=== PATIENT | female | born 1980 | race Caucasian/White ===

== ENCOUNTER 2017-04-14 16:15 | Inpatient (IN) | payer OTHER ==
[~2017-04-14] VITALS: Ht 154.9 cm; Wt 77.2 kg
[2017-04-14 16:37] LABS: GLUCOSE,POINT OF CARE 222 MG/DL (70-110)
[2017-04-14] MEDS ORDERED: FERR-89 PO (16:44)
[2017-04-14] MEDS ORDERED: PRAV20TA4 PO (16:44)
[2017-04-14] MEDS ORDERED: LISI-662 PO (16:44)
[2017-04-14] MEDS ORDERED: CIPR-278 PO (16:44)
[2017-04-14] MEDS ORDERED: FAMO20 PO (16:44)
[2017-04-14] MEDS ORDERED: INSU100V SQ (16:45)
[2017-04-14] MEDS ORDERED: INSLAN SQ (16:45)
[2017-04-14] MEDS ORDERED: SODIUM CHLORIDE 0.9% 1,000 ML IV ONE ×2 (17:00→19:30)
[2017-04-14 18:07] LABS: BASOPHILS # (AUTO) 0.04 K/uL (0.00-0.20); BASOPHILS % (AUTO) 0.3 % (0.0-2.0); EOSINOPHILS # (AUTO) 0.21 K/uL (0.00-0.70); EOSINOPHILS % (AUTO) 1.55 % (1.0-6.0); HEMATOCRIT 37.4 % (36-46); HEMOGLOBIN 12.6 g/dL (12.0-16.0); LYMPHOCYTES # (AUTO) 2.4 K/uL (1.0-4.8); LYMPHOCYTES % (AUTO) 17.8 % (22.0-44.0); MEAN CORPUSCULAR HGB CONC 33.6 G/dL (31.0-37.0); MEAN CORPUSCULAR VOLUME 86 fL (80-100); MONOCYTES # (AUTO) 0.8 K/uL (0.1-1.0); MONOCYTES % (AUTO) 5.5 % (2.0-9.0); NEUTROPHILS # (AUTO) 10.2 K/uL (1.8-7.7); NEUTROPHILS % (AUTO) 74.9 % (40.0-70.0); PLATELET COUNT (AUTO) 532 K/uL (150-450); RED BLOOD CELL COUNT(AUTO) 4.34 MIL/uL (4.00-5.20); WHITE BLOOD COUNT (AUTO) 13.6 K/uL (4.5-11.0)
[2017-04-14] MEDS ORDERED: SODIUM CHLORIDE 0.9% 2,000 ML IV ONE (18:15)
[2017-04-14 18:16] LABS: CALCIUM, TOTAL 9.7 mg/dL (8.8-10.5); CREATININE 1.52 mg/dL (0.60-1.30); POTASSIUM 4.3 mmol/L (3.5-5.1)
[2017-04-14 18:22] LABS: ALBUMIN 3.7 g/dL (3.4-5.0); BILIRUBIN,TOTAL 0.3 mg/dL (0.1-1.0); TOTAL PROTEIN, SERUM 8.3 g/dL (6.4-8.2)
[2017-04-14 18:41] LABS: APPEARANCE,URINE CLOUDY (CLEAR); GLUCOSE, URINE (UA) 250 mg/dL (NEGATIVE); KETONES,URINE NEGATIVE (NEGATIVE); LEUKOCYTE ESTERASE ,URINE SMALL (NEGATIVE); OCCULT BLOOD,URINE NEGATIVE (NEGATIVE); PH,URINE 6.5 (5.0-8.0); PROTEIN,URINE TRACE (NEGATIVE)
[2017-04-14] MEDS ORDERED: ONDANSETRON HCL 4 MG/2 ML VIAL IVP ONE ×2 (18:45→20:15)
[2017-04-14] MEDS ORDERED: MORPHINE SULFATE 4 MG/ML SYRINGE IVP ONE (18:45)
[2017-04-14] MEDS ORDERED: CefTRIAXone 1 GM/DEXTROSE 50 ML IV ONE (18:45)
[2017-04-14 18:46] LABS: RBC,URINE 0-2 /HPF (0-2); SQUAMOUS EPITHELIAL CELL,UR Many /LPF (None Seen)
[2017-04-14] MEDS ORDERED: LEVOFLOXACIN 500 MG TABLET PO ONE (19:30)
[2017-04-14] MEDS ORDERED: BARIUM SULFATE 0.1% SUSPENSION 450 ML BOTTLE PO ONE (20:15)
[2017-04-14] MEDS ORDERED: HYDROmorphone 2 MG/ML SYRINGE IVP ONE (20:15)
[2017-04-14 20:18] LABS: LACTIC ACID 1.4 mmol/L (0.4-2.0)
[2017-04-14 20:36] LABS: CREATINE KINASE MB 0.5 ng/mL (0-5); CREATINE KINASE, TOTAL 104 U/L (26-192)
[2017-04-14] MEDS: DOCUSATE SODIUM 100 MG CAPSULE PO SCH (21:00)
[2017-04-14] MEDS ORDERED: MAGNESIUM HYDROXIDE SUSPENSION 30 ML UDCUP PO PRN (21:00)
[2017-04-14] MEDS ORDERED: DEXTROSE 50%-WATER 25 GM/50 ML SYRINGE IVP PRN (21:15)
[2017-04-14] MEDS ORDERED: IOVERSOL 320 MG/ML 100 ML VIAL ONE (22:09)
[2017-04-14] MEDS ORDERED: SODIUM CHLORIDE 0.9% 100 ML ONE (22:09)
[2017-04-15] VITALS (7 sets, daily range): BP systolic 99–155; BP diastolic 68–99
[2017-04-15] MEDS: SODIUM CHLORIDE 0.9% 1,000 ML IV SCH ×3 (01:25→16:01)
[2017-04-15] MEDS: HYDROmorphone 2 MG/ML SYRINGE IVP PRN ×6 (01:32→23:32)
[2017-04-15] MEDS: INSULIN ASPART 100 UNITS/ML SQ PRN ×4 (06:26→23:32)
[2017-04-15 06:58] LABS: ANION GAP 10 mmol/L (8-16); CALCIUM, TOTAL 8.1 mg/dL (8.8-10.5); CARBON DIOXIDE 19 mmol/L (22-29); CHLORIDE 102 mmol/L (98-107); CREATININE 0.92 mg/dL (0.60-1.30); GLOMERULAR FILTR. RATE CALC > 60 mL/min (>60); POTASSIUM 4.4 mmol/L (3.5-5.1); SODIUM SERUM 131 mmol/L (136-145); UREA NITROGEN, BLOOD 16 mg/dL (7-18)
[2017-04-15 07:55] LABS: BASOPHILS # (AUTO) 0.04 K/uL (0.00-0.20); BASOPHILS % (AUTO) 0.5 % (0.0-2.0); EOSINOPHILS # (AUTO) 0.08 K/uL (0.00-0.70); EOSINOPHILS % (AUTO) 1.01 % (1.0-6.0); HEMATOCRIT 32.2 % (36-46); HEMOGLOBIN 10.8 g/dL (12.0-16.0); LYMPHOCYTES # (AUTO) 1.6 K/uL (1.0-4.8); LYMPHOCYTES % (AUTO) 20.5 % (22.0-44.0); MEAN CORPUSCULAR HGB CONC 33.4 G/dL (31.0-37.0); MEAN CORPUSCULAR VOLUME 87 fL (80-100); MONOCYTES # (AUTO) 0.6 K/uL (0.1-1.0); MONOCYTES % (AUTO) 7.2 % (2.0-9.0); NEUTROPHILS # (AUTO) 5.7 K/uL (1.8-7.7); NEUTROPHILS % (AUTO) 70.8 % (40.0-70.0); PLATELET COUNT (AUTO) 359 K/uL (150-450); RED BLOOD CELL COUNT(AUTO) 3.71 MIL/uL (4.00-5.20); RED CELL DISTRIBUTION WIDTH 13.1 % (11.5-14.5)
[2017-04-15 08:02] LABS: GLUCOSE COMMENT 1 Received Meds; GLUCOSE,POINT OF CARE 173 MG/DL (70-110)
[2017-04-15] MEDS: ONDANSETRON HCL 4 MG/2 ML VIAL IVP PRN ×2 (08:26→19:38)
[2017-04-15] MEDS: DOCUSATE SODIUM 100 MG CAPSULE PO SCH ×2 (08:28→19:39)
[2017-04-15] MEDS ORDERED: PANTOPRAZOLE SODIUM 40 MG/VIAL IVP SCH (09:00)
[2017-04-15 12:17] LABS: GLUCOSE COMMENT 1 Received Meds; GLUCOSE,POINT OF CARE 249 MG/DL (70-110)
[2017-04-15] MEDS: CefTRIAXone 1 GM/DEXTROSE 50 ML IV SCH (16:59)
[2017-04-15 17:22] LABS: GLUCOSE COMMENT 1 Received Meds; GLUCOSE,POINT OF CARE 201 MG/DL (70-110)
[2017-04-15] MEDS: PANTOPRAZOLE SODIUM 40 MG/VIAL IVP SCH (19:39)
[2017-04-16 00:07] LABS: GLUCOSE,POINT OF CARE 198 MG/DL (70-110)
[2017-04-16] MEDS: SODIUM CHLORIDE 0.9% 1,000 ML IV SCH ×2 (03:53→15:16)
[2017-04-16] MEDS: ONDANSETRON HCL 4 MG/2 ML VIAL IVP PRN ×3 (03:53→18:59)
[2017-04-16] MEDS: HYDROmorphone 2 MG/ML SYRINGE IVP PRN ×4 (03:53→18:31)
[2017-04-16 04:00] VITALS: BP 124/75
[2017-04-16] MEDS: INSULIN ASPART 100 UNITS/ML SQ PRN ×3 (05:32→18:30)
[2017-04-16 06:02] LABS: GLUCOSE,POINT OF CARE 206 MG/DL (70-110)
[2017-04-16 07:22] VITALS: BP 99/64
[2017-04-16] MEDS: DOCUSATE SODIUM 100 MG CAPSULE PO SCH ×2 (08:29→20:44)
[2017-04-16 11:21] VITALS: BP 122/70
[2017-04-16 12:42] LABS: GLUCOSE COMMENT 1 Received Meds; GLUCOSE,POINT OF CARE 256 MG/DL (70-110)
[2017-04-16] MEDS ORDERED: FLUCONAZOLE 150 MG TABLET PO ONE (15:00)
[2017-04-16] MEDS: MetroNIDAZOLE 500 MG/NACL 100 ML IV SCH ×2 (15:16→23:26)
[2017-04-16 15:59] VITALS: BP 125/81
[2017-04-16] MEDS: CIPROFLOXACIN 400 MG/D5% WATER 200 ML IV SCH (17:05)
[2017-04-16 18:02] LABS: GLUCOSE COMMENT 1 Received Meds; GLUCOSE,POINT OF CARE 227 MG/DL (70-110)
[2017-04-16] MEDS: CefTRIAXone 1 GM/DEXTROSE 50 ML IV SCH (18:31)
[2017-04-16] MEDS: METOCLOPRAMIDE HCL 5 MG/ML 2 ML VIAL IVP SCH ×2 (18:32→23:26)
[2017-04-16 19:33] VITALS: BP 125/82
[2017-04-16] MEDS: PANTOPRAZOLE SODIUM 40 MG/VIAL IVP SCH (20:44)
[2017-04-16 21:21] LABS: GLUCOSE,POINT OF CARE 243 MG/DL (70-110)
[2017-04-16 23:27] VITALS: BP 141/75
[2017-04-17] MEDS: CIPROFLOXACIN 400 MG/D5% WATER 200 ML IV SCH ×2 (03:04→15:00)
[2017-04-17] MEDS: SODIUM CHLORIDE 0.9% 1,000 ML IV SCH ×2 (03:05→18:14)
[2017-04-17 04:21] VITALS: BP 140/92
[2017-04-17] MEDS: METOCLOPRAMIDE HCL 5 MG/ML 2 ML VIAL IVP SCH ×4 (05:41→23:27)
[2017-04-17] MEDS: MetroNIDAZOLE 500 MG/NACL 100 ML IV SCH ×2 (05:41→14:42)
[2017-04-17 05:58] LABS: GLUCOSE,POINT OF CARE 280 MG/DL (70-110)
[2017-04-17 07:35] VITALS: BP 147/94
[2017-04-17] MEDS: HYDROmorphone 2 MG/ML SYRINGE IVP PRN (11:55)
[2017-04-17] MEDS: INSULIN ASPART 100 UNITS/ML SQ PRN ×3 (11:56→20:22)
[2017-04-17] MEDS: DOCUSATE SODIUM 100 MG CAPSULE PO SCH ×2 (11:57→20:16)
[2017-04-17 12:42] LABS: GLUCOSE,POINT OF CARE 259 MG/DL (70-110)
[2017-04-17] MEDS: ACETAMINOPHEN 325 MG TABLET PO PRN ×2 (12:43→20:16)
[2017-04-17 13:05] VITALS: BP 138/93
[2017-04-17 15:40] VITALS: BP 112/81
[2017-04-17 18:28] LABS: GLUCOSE COMMENT 1 Received Meds; GLUCOSE,POINT OF CARE 250 MG/DL (70-110)
[2017-04-17 20:04] VITALS: BP 156/99
[2017-04-17] MEDS: PANTOPRAZOLE SODIUM 40 MG/VIAL IVP SCH (20:16)
[2017-04-17 20:47] LABS: GLUCOSE COMMENT 1 Received Meds; GLUCOSE,POINT OF CARE 290 MG/DL (70-110)
[2017-04-17 23:30] VITALS: BP 144/82
[2017-04-18] MEDS: SODIUM CHLORIDE 0.9% 1,000 ML IV SCH ×2 (03:43→13:58)
[2017-04-18 04:00] VITALS: BP 136/92
[2017-04-18] MEDS: METOCLOPRAMIDE HCL 5 MG/ML 2 ML VIAL IVP SCH ×2 (05:52→12:12)
[2017-04-18] MEDS: INSULIN ASPART 100 UNITS/ML SQ PRN ×2 (06:14→11:56)
[2017-04-18 06:33] LABS: GLUCOSE COMMENT 1 Received Meds; GLUCOSE,POINT OF CARE 315 MG/DL (70-110)
[2017-04-18 07:52] VITALS: BP 130/88
[2017-04-18] MEDS: DOCUSATE SODIUM 100 MG CAPSULE PO SCH (08:51)
[2017-04-18 11:01] VITALS: BP 136/93
[2017-04-18 15:27] LABS: BASOPHILS # (AUTO) 0.07 K/uL (0.00-0.20); BASOPHILS % (AUTO) 0.8 % (0.0-2.0); EOSINOPHILS # (AUTO) 0.17 K/uL (0.00-0.70); EOSINOPHILS % (AUTO) 1.94 % (1.0-6.0); HEMATOCRIT 34.9 % (36-46); HEMOGLOBIN 11.8 g/dL (12.0-16.0); LYMPHOCYTES # (AUTO) 2.3 K/uL (1.0-4.8); LYMPHOCYTES % (AUTO) 25.9 % (22.0-44.0); MEAN CORPUSCULAR HEMOGLOBIN 29.6 pg (26.0-34.0); MEAN CORPUSCULAR HGB CONC 33.9 G/dL (31.0-37.0); MEAN CORPUSCULAR VOLUME 87 fL (80-100); MONOCYTES # (AUTO) 0.4 K/uL (0.1-1.0); MONOCYTES % (AUTO) 4.5 % (2.0-9.0); NEUTROPHILS # (AUTO) 5.8 K/uL (1.8-7.7); NEUTROPHILS % (AUTO) 66.9 % (40.0-70.0); PLATELET COUNT (AUTO) 372 K/uL (150-450); RED BLOOD CELL COUNT(AUTO) 3.99 MIL/uL (4.00-5.20); RED CELL DISTRIBUTION WIDTH 13.2 % (11.5-14.5); WHITE BLOOD COUNT (AUTO) 8.7 K/uL (4.5-11.0)
[2017-04-18 15:48] LABS: ANION GAP 12 mmol/L (8-16); CALCIUM, TOTAL 9.5 mg/dL (8.8-10.5); CARBON DIOXIDE 23 mmol/L (22-29); CHLORIDE 103 mmol/L (98-107); CREATININE 0.86 mg/dL (0.60-1.30); GLOMERULAR FILTR. RATE CALC > 60 mL/min (>60); SODIUM SERUM 138 mmol/L (136-145); UREA NITROGEN, BLOOD 8 mg/dL (7-18)
[2017-04-18 16:08] LABS: ALANINE AMINOTRANSFERASE 157 U/L (12-78); ALBUMIN 3.6 g/dL (3.4-5.0); ASPARTATE AMINOTRANSFERASE 27 U/L (15-37); BILIRUBIN,TOTAL 0.3 mg/dL (0.1-1.0); TOTAL PROTEIN, SERUM 7.8 g/dL (6.4-8.2)
[2017-04-18 16:10] VITALS: BP 144/96
[2017-04-18 17:43] LABS: GLUCOSE,POINT OF CARE 280 MG/DL (70-110)
== END 2017-04-18 16:15 | disposition home or self-care (01) | DRG 48 ==
LOC: EMS 16:18 → 6N 21:31
PROVIDERS: ADMIT Internal Medicine; ATTEND Internal Medicine
DX: E11.43 Type 2 diabetes mellitus with diabetic autonomic (poly)neuropathy (principal); R65.11 Systemic inflammatory response syndrome (SIRS) of non-infectious origin with acute organ dysfunction; E87.1 Hypo-osmolality and hyponatremia; N39.0 Urinary tract infection, site not specified; R62.7 Adult failure to thrive; N19 Unspecified kidney failure; B37.3 Candidiasis of vulva and vagina; I10 Essential (primary) hypertension; K31.84 Gastroparesis; R10.9 Unspecified abdominal pain; K21.9 Gastro-esophageal reflux disease without esophagitis; E66.9 Obesity, unspecified; E78.00 Pure hypercholesterolemia, unspecified; E86.0 Dehydration; D64.9 Anemia, unspecified; Z68.32 Body mass index [BMI] 32.0-32.9, adult; Z79.4 Long term (current) use of insulin; Z79.899 Other long term (current) drug therapy; Z79.2 Long term (current) use of antibiotics; Z90.49 Acquired absence of other specified parts of digestive tract; Z83.3 Family history of diabetes mellitus
CPT/HCPCS: 74177; 78264; 82533; 82962; 83605; 87086; 93005; 96361; 96365; 96375; 96376; 99285; A9541; C9113; J0696; J0744; J1170; J2270; J2405; J2765; J3490; J7030; J7050

== ENCOUNTER 2018-12-26 10:14 | Inpatient (IN) | payer OTHER ==
[~2018-12-26] VITALS: Ht 162.6 cm; Wt 72.1 kg
[~2018-12-26 10:14] MED LIST: ASCO500T24 PO; CALC-719 PO; INSLAN SQ; INSU100V SQ; LISI-660 PO; PRAV20TA4 PO
[2018-12-26 10:33] LABS: GLUCOSE,POINT OF CARE 429 MG/DL (70-110)
[2018-12-26] MEDS ORDERED: SODIUM CHLORIDE 0.9% 2,000 ML IV ONE (11:45)
[2018-12-26] MEDS ORDERED: ONDANSETRON HCL 4 MG/2 ML VIAL IVP ONE (11:45)
[2018-12-26] MEDS ORDERED: INSULIN REGULAR, HUMAN 100 UNITS/ML IVP ONE (11:45)
[2018-12-26] MEDS ORDERED: KETOROLAC TROMETHAMINE 30 MG/ML VIAL IVP ONE (11:45)
[2018-12-26] MEDS ORDERED: FentaNYL CITRATE-PF 100 MCG/2 ML VIAL IVP ONE ×2 (11:45→16:30)
[2018-12-26] MEDS ORDERED: CefTRIAXone 1 GM/DEXTROSE 50 ML IV ONE (11:45)
[2018-12-26] MEDS ORDERED: SODIUM CHLORIDE 0.9% 100 ML ONE (11:55)
[2018-12-26] MEDS ORDERED: IOVERSOL 350 MG/ML 100 ML VIAL ONE (11:55)
[2018-12-26 12:41] LABS: BASOPHILS % (AUTO) 0.7 % (0.0-2.0); EOSINOPHILS % (AUTO) 2.9 % (1.0-6.0); HEMATOCRIT 32.5 % (36-46); HEMOGLOBIN 11.1 g/dL (12.0-16.0); LYMPHOCYTES # (AUTO) 1.6 K/uL (1.0-4.8); LYMPHOCYTES % (AUTO) 15.9 % (22.0-44.0); MEAN CORPUSCULAR HEMOGLOBIN 29.8 pg (26.0-34.0); MEAN CORPUSCULAR HGB CONC 34.3 G/dL (31.0-37.0); MEAN CORPUSCULAR VOLUME 87 fL (80-100); MONOCYTES # (AUTO) 0.7 K/uL (0.1-1.0); NEUTROPHILS # (AUTO) 7.4 K/uL (1.8-7.7); NEUTROPHILS % (AUTO) 73.5 % (40.0-70.0); PLATELET COUNT (AUTO) 547 K/uL (150-450); RED BLOOD CELL COUNT(AUTO) 3.74 MIL/uL (4.00-5.20); RED CELL DISTRIBUTION WIDTH 13.2 % (11.5-14.5)
[2018-12-26 13:33] LABS: ALANINE AMINOTRANSFERASE 29 U/L (12-78); ALBUMIN 3.5 g/dL (3.4-5.0); ALKALINE PHOSPHATASE 110 U/L (46-116); ANION GAP 14 mmol/L (8-16); ASPARTATE AMINOTRANSFERASE 18 U/L (15-37); BILIRUBIN,TOTAL 0.4 mg/dL (0.1-1.0); CALCIUM, TOTAL 9.6 mg/dL (8.8-10.5); CARBON DIOXIDE 21 mmol/L (22-29); CHLORIDE 96 mmol/L (98-107); CREATININE 1.09 mg/dL (0.60-1.30); GLOMERULAR FILTR. RATE CALC 56 mL/min (>60); LIPASE 82 U/L (73-393); POTASSIUM 4.9 mmol/L (3.5-5.1); SODIUM SERUM 131 mmol/L (136-145); TOTAL PROTEIN, SERUM 8.5 g/dL (6.4-8.2); UREA NITROGEN, BLOOD 18 mg/dL (7-18)
[2018-12-26 13:34] LABS: GLUCOSE,RANDOM 436 mg/dL (70-110)
[2018-12-26 13:35] LABS: ACETONE,BLOOD NEGATIVE (NEGATIVE)
[2018-12-26] MEDS ORDERED: ACETAMINOPHEN 325 MG TABLET PO PRN ×2 (14:15→21:00)
[2018-12-26] MEDS ORDERED: 0.9% SODIUM CHLORIDE 10 ML SYRINGE IVP PRN (14:15)
[2018-12-26] MEDS ORDERED: ONDANSETRON HCL 4 MG/2 ML VIAL IVP PRN (14:15)
[2018-12-26 14:34] LABS: HCG,QUANTITATIVE < 1 mIU/mL (0-6)
[2018-12-26] MEDS ORDERED: AmLODIPine BESYLATE 5 MG TABLET PO ONE (16:30)
[2018-12-26 18:07] VITALS: BP 178/100
[2018-12-26] MEDS ORDERED: CloNIDine HCL 0.1 MG TABLET PO PRN (18:15)
[2018-12-26] MEDS: MORPHINE SULFATE 2 MG/ML SYRINGE IVP PRN ×3 (18:22→23:59)
[2018-12-26] MEDS ORDERED: PNEUMOCOCCAL VACCINE POLYVALENT 0.5 ML VIAL [PPSV23] IM ONE (19:30)
[2018-12-26 20:06] VITALS: BP 103/64
[2018-12-26 20:14] LABS: GLUCOMETER DEV NAME(LOC) 5S.2; GLUCOSE,POINT OF CARE 295 MG/DL (70-110)
[2018-12-26] MEDS ORDERED: DEXTROSE 50%-WATER 25 GM/50 ML SYRINGE IVP PRN (20:45)
[2018-12-26] MEDS ORDERED: BISACODYL 10 MG RECTAL RECTAL SUPPOSITORY PR PRN (21:00)
[2018-12-26] MEDS ORDERED: MAGNESIUM HYDROXIDE SUSPENSION 30 ML UDCUP PO PRN (21:00)
[2018-12-26] MEDS ORDERED: ALBUTEROL SULFATE 2.5 MG/0.5 ML NEB SOLUTION NEB PRN (21:00)
[2018-12-26] MEDS ORDERED: IPRATROPIUM BROMIDE 0.5 MG/2.5 ML NEB SOLUTION NEB PRN (21:00)
[2018-12-26] MEDS ORDERED: INSULIN GLARGINE,HUM.REC.ANLOG 100 UNITS/ML SQ ONE (21:00)
[2018-12-26] MEDS: INSULIN LISPRO 100 UNITS/ML SQ PRN (21:29)
[2018-12-26] MEDS: DOCUSATE SODIUM 100 MG CAPSULE PO SCH (21:30)
[2018-12-26 21:33] LABS: ANION GAP 12 mmol/L (8-16); CALCIUM, TOTAL 8.1 mg/dL (8.8-10.5); CARBON DIOXIDE 21 mmol/L (22-29); CHLORIDE 100 mmol/L (98-107); CREATININE 0.91 mg/dL (0.60-1.30); GLOMERULAR FILTR. RATE CALC > 60 mL/min (>60); GLUCOSE,RANDOM 324 mg/dL (70-110); POTASSIUM 4.5 mmol/L (3.5-5.1); SODIUM SERUM 133 mmol/L (136-145); UREA NITROGEN, BLOOD 14 mg/dL (7-18)
[2018-12-26] MEDS ORDERED: SODIUM CHLORIDE 0.9% 500 ML IV ONE (21:42)
[2018-12-26] MEDS: PIPERACILLIN/TAZO 3.375 GM/D5W 50 ML IV SCH (22:16)
[2018-12-26] MEDS: HEPARIN SODIUM,PORCINE 5,000 UNITS/ML VIAL SQ SCH (23:24)
[2018-12-26 23:59] VITALS: BP 116/66
[2018-12-27] MEDS: ZOLPIDEM TARTRATE 5 MG TABLET PO PRN (00:56)
[2018-12-27] MEDS: PIPERACILLIN/TAZO 3.375 GM/D5W 50 ML IV SCH ×4 (03:35→22:16)
[2018-12-27] MEDS: HYDROCODONE/ACETAMINOPHEN 5-325 MG TABLET PO PRN (04:13)
[2018-12-27 05:19] VITALS: BP 102/54
[2018-12-27 05:44] LABS: GLUCOMETER DEV NAME(LOC) 5S.2; GLUCOSE,POINT OF CARE 304 MG/DL (70-110)
[2018-12-27] MEDS: INSULIN LISPRO 100 UNITS/ML SQ PRN ×4 (06:01→22:17)
[2018-12-27 06:09] LABS: BASOPHILS % (AUTO) 0.5 % (0.0-2.0); EOSINOPHILS % (AUTO) 2.2 % (1.0-6.0); HEMATOCRIT 26.5 % (36-46); HEMOGLOBIN 9.3 g/dL (12.0-16.0); LYMPHOCYTES # (AUTO) 1.3 K/uL (1.0-4.8); LYMPHOCYTES % (AUTO) 17.2 % (22.0-44.0); MEAN CORPUSCULAR HEMOGLOBIN 30.6 pg (26.0-34.0); MEAN CORPUSCULAR HGB CONC 35.2 G/dL (31.0-37.0); MEAN CORPUSCULAR VOLUME 87 fL (80-100); MONOCYTES # (AUTO) 0.6 K/uL (0.1-1.0); MONOCYTES % (AUTO) 7.9 % (2.0-9.0); NEUTROPHILS # (AUTO) 5.5 K/uL (1.8-7.7); NEUTROPHILS % (AUTO) 72.2 % (40.0-70.0); PLATELET COUNT (AUTO) 430 K/uL (150-450); RED BLOOD CELL COUNT(AUTO) 3.05 MIL/uL (4.00-5.20); RED CELL DISTRIBUTION WIDTH 13.5 % (11.5-14.5)
[2018-12-27 06:29] LABS: ALANINE AMINOTRANSFERASE 20 U/L (12-78); ALBUMIN 2.7 g/dL (3.4-5.0); ALKALINE PHOSPHATASE 78 U/L (46-116); ANION GAP 12 mmol/L (8-16); ASPARTATE AMINOTRANSFERASE 16 U/L (15-37); BILIRUBIN,TOTAL 0.3 mg/dL (0.1-1.0); CALCIUM, TOTAL 8.5 mg/dL (8.8-10.5); CARBON DIOXIDE 22 mmol/L (22-29); CHLORIDE 99 mmol/L (98-107); CREATININE 0.88 mg/dL (0.60-1.30); GLOMERULAR FILTR. RATE CALC > 60 mL/min (>60); GLUCOSE,RANDOM 320 mg/dL (70-110); POTASSIUM 4.4 mmol/L (3.5-5.1); SODIUM SERUM 133 mmol/L (136-145); TOTAL PROTEIN, SERUM 6.7 g/dL (6.4-8.2); UREA NITROGEN, BLOOD 15 mg/dL (7-18)
[2018-12-27 07:40] VITALS: BP 116/71
[2018-12-27 08:12] LABS: APPEARANCE,URINE CLEAR (CLEAR); BILIRUBIN,URINE NEGATIVE (NEGATIVE); GLUCOSE, URINE (UA) >=1000 mg/dL (NEGATIVE); KETONES,URINE NEGATIVE (NEGATIVE); LEUKOCYTE ESTERASE ,URINE NEGATIVE (NEGATIVE); NITRATE,URINE NEGATIVE (NEGATIVE); OCCULT BLOOD,URINE SMALL (NEGATIVE); PROTEIN,URINE SEE CONFIRM (NEGATIVE); UROBILINOGEN,URINE 0.2 mg/dL (<=1.0)
[2018-12-27 08:20] LABS: BACTERIA,URINE None Seen /HPF (None Seen); RBC,URINE 0-2 /HPF (0-2); SQUAMOUS EPITHELIAL CELL,UR Few /LPF (None Seen); SULFOSALICYLIC ACID,URINE 1+ (Negative)
[2018-12-27] MEDS: LISINOPRIL 5 MG TABLET PO SCH (08:26)
[2018-12-27] MEDS: PRAVASTATIN SODIUM 20 MG TABLET PO SCH (08:26)
[2018-12-27] MEDS: CALCIUM OYSTER SHELL 500 MG TABLET PO SCH (08:26)
[2018-12-27] MEDS: ASCORBIC ACID 500 MG TABLET PO SCH (08:26)
[2018-12-27] MEDS: DOCUSATE SODIUM 100 MG CAPSULE PO SCH ×2 (08:27→21:11)
[2018-12-27] MEDS: HEPARIN SODIUM,PORCINE 5,000 UNITS/ML VIAL SQ SCH ×2 (08:27→15:39)
[2018-12-27] MEDS: FAMOTIDINE 10 MG/ML 2 ML VIAL IVP SCH (08:28)
[2018-12-27] MEDS: INSULIN GLARGINE,HUM.REC.ANLOG 100 UNITS/ML SQ SCH (08:42)
[2018-12-27 11:19] LABS: GLUCOMETER DEV NAME(LOC) 5S.2; GLUCOSE,POINT OF CARE 310 MG/DL (70-110)
[2018-12-27] MEDS: MORPHINE SULFATE 2 MG/ML SYRINGE IVP PRN ×4 (11:46→21:11)
[2018-12-27 11:52] VITALS: BP 143/91
[2018-12-27] MEDS: CefTRIAXone 1 GM/DEXTROSE 50 ML IV SCH (11:53)
[2018-12-27] MEDS: ONDANSETRON HCL 4 MG/2 ML VIAL IVP PRN ×2 (13:31→18:25)
[2018-12-27 17:24] LABS: GLUCOMETER DEV NAME(LOC) 5S.2; GLUCOSE,POINT OF CARE 228 MG/DL (70-110)
[2018-12-27 20:17] VITALS: BP 133/72
[2018-12-28 00:06] VITALS: BP 127/75
[2018-12-28 00:24] LABS: GLUCOMETER DEV NAME(LOC) 5N.2; GLUCOSE,POINT OF CARE 213 MG/DL (70-110)
[2018-12-28] MEDS: MORPHINE SULFATE 2 MG/ML SYRINGE IVP PRN ×2 (00:26→09:15)
[2018-12-28] MEDS: HEPARIN SODIUM,PORCINE 5,000 UNITS/ML VIAL SQ SCH ×4 (00:26→23:54)
[2018-12-28 04:31] VITALS: BP 151/78
[2018-12-28] MEDS: PIPERACILLIN/TAZO 3.375 GM/D5W 50 ML IV SCH ×4 (04:38→20:43)
[2018-12-28] MEDS: INSULIN LISPRO 100 UNITS/ML SQ PRN ×4 (04:48→20:51)
[2018-12-28 05:35] LABS: BASOPHILS % (AUTO) 0.8 % (0.0-2.0); EOSINOPHILS % (AUTO) 2.5 % (1.0-6.0); HEMATOCRIT 29.1 % (36-46); HEMOGLOBIN 10.3 g/dL (12.0-16.0); LYMPHOCYTES # (AUTO) 1.8 K/uL (1.0-4.8); LYMPHOCYTES % (AUTO) 26.2 % (22.0-44.0); MEAN CORPUSCULAR HEMOGLOBIN 30.4 pg (26.0-34.0); MEAN CORPUSCULAR HGB CONC 35.5 G/dL (31.0-37.0); MEAN CORPUSCULAR VOLUME 86 fL (80-100); MONOCYTES # (AUTO) 0.5 K/uL (0.1-1.0); MONOCYTES % (AUTO) 7.3 % (2.0-9.0); NEUTROPHILS # (AUTO) 4.4 K/uL (1.8-7.7); NEUTROPHILS % (AUTO) 63.2 % (40.0-70.0); PLATELET COUNT (AUTO) 429 K/uL (150-450); RED CELL DISTRIBUTION WIDTH 13.4 % (11.5-14.5)
[2018-12-28 05:39] LABS: GLUCOMETER DEV NAME(LOC) 5S.2; GLUCOSE,POINT OF CARE 240 MG/DL (70-110)
[2018-12-28 06:02] LABS: ALANINE AMINOTRANSFERASE 26 U/L (12-78); ALBUMIN 2.9 g/dL (3.4-5.0); ALKALINE PHOSPHATASE 74 U/L (46-116); ANION GAP 12 mmol/L (8-16); ASPARTATE AMINOTRANSFERASE 26 U/L (15-37); BILIRUBIN,TOTAL 0.3 mg/dL (0.1-1.0); CALCIUM, TOTAL 8.4 mg/dL (8.8-10.5); CARBON DIOXIDE 23 mmol/L (22-29); CHLORIDE 101 mmol/L (98-107); CREATININE 0.78 mg/dL (0.60-1.30); GLOMERULAR FILTR. RATE CALC > 60 mL/min (>60); GLUCOSE,RANDOM 253 mg/dL (70-110); POTASSIUM 3.8 mmol/L (3.5-5.1); SODIUM SERUM 136 mmol/L (136-145); TOTAL PROTEIN, SERUM 7.2 g/dL (6.4-8.2); UREA NITROGEN, BLOOD 9 mg/dL (7-18)
[2018-12-28 08:10] VITALS: BP 106/69
[2018-12-28] MEDS: CALCIUM OYSTER SHELL 500 MG TABLET PO SCH (09:15)
[2018-12-28] MEDS: DOCUSATE SODIUM 100 MG CAPSULE PO SCH ×2 (09:15→20:42)
[2018-12-28] MEDS: PRAVASTATIN SODIUM 20 MG TABLET PO SCH (09:15)
[2018-12-28] MEDS: LISINOPRIL 5 MG TABLET PO SCH ×2 (09:15→11:59)
[2018-12-28] MEDS: ASCORBIC ACID 500 MG TABLET PO SCH (09:15)
[2018-12-28] MEDS: FAMOTIDINE 10 MG/ML 2 ML VIAL IVP SCH (09:23)
[2018-12-28] MEDS: INSULIN GLARGINE,HUM.REC.ANLOG 100 UNITS/ML SQ SCH (09:24)
[2018-12-28 11:37] VITALS: BP 122/58
[2018-12-28] MEDS: CefTRIAXone 1 GM/DEXTROSE 50 ML IV SCH (11:59)
[2018-12-28] MEDS: ONDANSETRON HCL 4 MG/2 ML VIAL IVP PRN ×2 (12:25→17:51)
[2018-12-28 14:04] LABS: GLUCOMETER DEV NAME(LOC) 5S.2; GLUCOSE,POINT OF CARE 275 MG/DL (70-110)
[2018-12-28 16:22] VITALS: BP 153/98
[2018-12-28 17:28] LABS: GLUCOMETER DEV NAME(LOC) 5S.2; GLUCOSE,POINT OF CARE 208 MG/DL (70-110)
[2018-12-28 20:25] VITALS: BP 143/92
[2018-12-28] MEDS: ZOLPIDEM TARTRATE 5 MG TABLET PO PRN (20:55)
[2018-12-28 21:24] LABS: GLUCOMETER DEV NAME(LOC) 5S.2; GLUCOSE,POINT OF CARE 286 MG/DL (70-110)
[2018-12-29 01:01] VITALS: BP 120/66
[2018-12-29] MEDS: PIPERACILLIN/TAZO 3.375 GM/D5W 50 ML IV SCH ×4 (03:26→22:08)
[2018-12-29 03:59] VITALS: BP 118/67
[2018-12-29 06:04] LABS: GLUCOMETER DEV NAME(LOC) 5S.2; GLUCOSE,POINT OF CARE 243 MG/DL (70-110)
[2018-12-29 06:08] LABS: BASOPHILS % (AUTO) 0.8 % (0.0-2.0); EOSINOPHILS % (AUTO) 1.7 % (1.0-6.0); HEMATOCRIT 29.8 % (36-46); HEMOGLOBIN 10.4 g/dL (12.0-16.0); LYMPHOCYTES # (AUTO) 1.8 K/uL (1.0-4.8); LYMPHOCYTES % (AUTO) 24.6 % (22.0-44.0); MEAN CORPUSCULAR HEMOGLOBIN 29.9 pg (26.0-34.0); MEAN CORPUSCULAR VOLUME 85 fL (80-100); MONOCYTES # (AUTO) 0.6 K/uL (0.1-1.0); MONOCYTES % (AUTO) 7.9 % (2.0-9.0); NEUTROPHILS # (AUTO) 4.8 K/uL (1.8-7.7); PLATELET COUNT (AUTO) 454 K/uL (150-450); RED BLOOD CELL COUNT(AUTO) 3.49 MIL/uL (4.00-5.20); RED CELL DISTRIBUTION WIDTH 13.6 % (11.5-14.5)
[2018-12-29 06:33] LABS: ALANINE AMINOTRANSFERASE 23 U/L (12-78); ALBUMIN 2.9 g/dL (3.4-5.0); ALKALINE PHOSPHATASE 67 U/L (46-116); ANION GAP 14 mmol/L (8-16); ASPARTATE AMINOTRANSFERASE 18 U/L (15-37); BILIRUBIN,TOTAL 0.3 mg/dL (0.1-1.0); CALCIUM, TOTAL 8.9 mg/dL (8.8-10.5); CARBON DIOXIDE 21 mmol/L (22-29); CHLORIDE 101 mmol/L (98-107); CREATININE 0.74 mg/dL (0.60-1.30); GLOMERULAR FILTR. RATE CALC > 60 mL/min (>60); GLUCOSE,RANDOM 251 mg/dL (70-110); POTASSIUM 3.5 mmol/L (3.5-5.1); SODIUM SERUM 136 mmol/L (136-145); TOTAL PROTEIN, SERUM 7.1 g/dL (6.4-8.2); UREA NITROGEN, BLOOD 7 mg/dL (7-18)
[2018-12-29 07:53] VITALS: BP 131/80
[2018-12-29] MEDS: HEPARIN SODIUM,PORCINE 5,000 UNITS/ML VIAL SQ SCH ×3 (08:00→23:48)
[2018-12-29] MEDS: DOCUSATE SODIUM 100 MG CAPSULE PO SCH ×2 (09:00→19:52)
[2018-12-29 09:39] LABS: PROTHROMBIN TIME 10.2 SEC (9.4-11.6)
[2018-12-29] MEDS ORDERED: FLUMAZENIL 0.1 MG/ML 5 ML VIAL IVP ONE (11:00)
[2018-12-29] MEDS ORDERED: LIDOCAINE/PF 1% 30 ML VIAL ONE (11:00)
[2018-12-29] MEDS ORDERED: MIDAZOLAM HCL 2 MG/2 ML VIAL ONE ×2 (11:00→12:06)
[2018-12-29] MEDS ORDERED: FentaNYL CITRATE-PF 100 MCG/2 ML VIAL ONE ×2 (11:00→12:06)
[2018-12-29] MEDS ORDERED: NALOXONE HCL 0.4 MG/ML VIAL ONE (11:00)
[2018-12-29] MEDS ORDERED: SODIUM CHLORIDE 0.9% 100 ML ONE (11:31)
[2018-12-29] MEDS ORDERED: IOVERSOL 320 MG/ML 100 ML VIAL ONE (11:31)
[2018-12-29] MEDS ORDERED: GELATIN SPONGE,ABSORBABLE 12-7 MM TP ONE (12:07)
[2018-12-29] MEDS ORDERED: MIDAZOLAM HCL 2 MG/2 ML VIAL IVP ONE (12:11)
[2018-12-29] MEDS ORDERED: FentaNYL CITRATE-PF 100 MCG/2 ML VIAL IVP ONE (12:11)
[2018-12-29] MEDS ORDERED: HYDROmorphone 2 MG/ML SYRINGE IVP ONE (12:30)
[2018-12-29] MEDS: INSULIN GLARGINE,HUM.REC.ANLOG 100 UNITS/ML SQ SCH (13:21)
[2018-12-29] MEDS: ONDANSETRON HCL 4 MG/2 ML VIAL IVP PRN ×2 (13:23→20:49)
[2018-12-29] MEDS: CALCIUM OYSTER SHELL 500 MG TABLET PO SCH (13:30)
[2018-12-29] MEDS: ASCORBIC ACID 500 MG TABLET PO SCH (13:30)
[2018-12-29] MEDS: FAMOTIDINE 10 MG/ML 2 ML VIAL IVP SCH (13:31)
[2018-12-29] MEDS: PRAVASTATIN SODIUM 20 MG TABLET PO SCH (13:31)
[2018-12-29] MEDS: LISINOPRIL 5 MG TABLET PO SCH (15:39)
[2018-12-29 16:01] VITALS: BP 143/84
[2018-12-29] MEDS: INSULIN LISPRO 100 UNITS/ML SQ PRN ×2 (17:31→20:53)
[2018-12-29] MEDS ORDERED: SODIUM CHLORIDE 0.9% 500 ML IV ONE (17:42)
[2018-12-29 17:49] LABS: GLUCOMETER DEV NAME(LOC) 5S.2; GLUCOSE,POINT OF CARE 298 MG/DL (70-110)
[2018-12-29 17:49] LABS: GLUCOMETER DEV NAME(LOC) 5S.2; GLUCOSE,POINT OF CARE 305 MG/DL (70-110)
[2018-12-29 21:04] LABS: GLUCOMETER DEV NAME(LOC) 5N.2; GLUCOSE,POINT OF CARE 216 MG/DL (70-110)
[2018-12-29 21:24] VITALS: BP 131/84
[2018-12-30] VITALS (7 sets, daily range): BP systolic 107–150; BP diastolic 56–90
[2018-12-30] MEDS: PIPERACILLIN/TAZO 3.375 GM/D5W 50 ML IV SCH ×4 (04:08→22:12)
[2018-12-30] MEDS: INSULIN LISPRO 100 UNITS/ML SQ PRN ×4 (06:14→20:25)
[2018-12-30 06:20] LABS: GLUCOMETER DEV NAME(LOC) 5S.2; GLUCOSE,POINT OF CARE 156 MG/DL (70-110)
[2018-12-30 06:50] LABS: BASOPHILS % (AUTO) 0.6 % (0.0-2.0); EOSINOPHILS % (AUTO) 1.1 % (1.0-6.0); HEMATOCRIT 31.7 % (36-46); LYMPHOCYTES # (AUTO) 1.7 K/uL (1.0-4.8); LYMPHOCYTES % (AUTO) 21.7 % (22.0-44.0); MEAN CORPUSCULAR HEMOGLOBIN 29.8 pg (26.0-34.0); MEAN CORPUSCULAR HGB CONC 34.7 G/dL (31.0-37.0); MEAN CORPUSCULAR VOLUME 86 fL (80-100); MONOCYTES # (AUTO) 0.6 K/uL (0.1-1.0); MONOCYTES % (AUTO) 7.4 % (2.0-9.0); NEUTROPHILS # (AUTO) 5.6 K/uL (1.8-7.7); NEUTROPHILS % (AUTO) 69.2 % (40.0-70.0); RED BLOOD CELL COUNT(AUTO) 3.68 MIL/uL (4.00-5.20); RED CELL DISTRIBUTION WIDTH 13.7 % (11.5-14.5)
[2018-12-30 07:27] LABS: ALANINE AMINOTRANSFERASE 23 U/L (12-78); ALBUMIN 3.1 g/dL (3.4-5.0); ALKALINE PHOSPHATASE 73 U/L (46-116); ANION GAP 12 mmol/L (8-16); ASPARTATE AMINOTRANSFERASE 19 U/L (15-37); BILIRUBIN,TOTAL 0.3 mg/dL (0.1-1.0); CALCIUM, TOTAL 9.3 mg/dL (8.8-10.5); CARBON DIOXIDE 24 mmol/L (22-29); CHLORIDE 102 mmol/L (98-107); CREATININE 0.66 mg/dL (0.60-1.30); GLOMERULAR FILTR. RATE CALC > 60 mL/min (>60); GLUCOSE,RANDOM 155 mg/dL (70-110); POTASSIUM 3.1 mmol/L (3.5-5.1); SODIUM SERUM 138 mmol/L (136-145); TOTAL PROTEIN, SERUM 7.5 g/dL (6.4-8.2); UREA NITROGEN, BLOOD 10 mg/dL (7-18)
[2018-12-30 07:30] LABS: PLATELET COUNT (AUTO) 488 K/uL (150-450)
[2018-12-30] MEDS ORDERED: POTASSIUM CHLORIDE 20 MEQ ER TABLET PO ONE (07:45)
[2018-12-30] MEDS: DOCUSATE SODIUM 100 MG CAPSULE PO SCH ×2 (08:22→21:00)
[2018-12-30] MEDS: LISINOPRIL 5 MG TABLET PO SCH (08:23)
[2018-12-30] MEDS: PRAVASTATIN SODIUM 20 MG TABLET PO SCH (08:23)
[2018-12-30] MEDS: CALCIUM OYSTER SHELL 500 MG TABLET PO SCH (08:23)
[2018-12-30] MEDS: HEPARIN SODIUM,PORCINE 5,000 UNITS/ML VIAL SQ SCH ×3 (08:24→23:26)
[2018-12-30] MEDS: ASCORBIC ACID 500 MG TABLET PO SCH (08:25)
[2018-12-30] MEDS: FAMOTIDINE 10 MG/ML 2 ML VIAL IVP SCH (08:25)
[2018-12-30] MEDS: INSULIN GLARGINE,HUM.REC.ANLOG 100 UNITS/ML SQ SCH (09:09)
[2018-12-30] MEDS: MORPHINE SULFATE 2 MG/ML SYRINGE IVP PRN ×2 (09:10→17:13)
[2018-12-30 20:38] LABS: GLUCOMETER DEV NAME(LOC) 5N.2; GLUCOSE,POINT OF CARE 236 MG/DL (70-110)
[2018-12-30 20:39] LABS: GLUCOMETER DEV NAME(LOC) 5N.2; GLUCOSE,POINT OF CARE 279 MG/DL (70-110)
[2018-12-30] MEDS: HYDROCODONE/ACETAMINOPHEN 5-325 MG TABLET PO PRN (22:20)
[2018-12-30] MEDS: ZOLPIDEM TARTRATE 5 MG TABLET PO PRN (23:26)
[2018-12-30 23:33] LABS: GLUCOMETER DEV NAME(LOC) 5S.2; GLUCOSE,POINT OF CARE 324 MG/DL (70-110)
[2018-12-31 04:15] VITALS: BP 144/82
[2018-12-31] MEDS: PIPERACILLIN/TAZO 3.375 GM/D5W 50 ML IV SCH ×4 (04:33→22:15)
[2018-12-31] MEDS: INSULIN LISPRO 100 UNITS/ML SQ PRN ×4 (05:46→20:27)
[2018-12-31 06:04] LABS: BASOPHILS % (AUTO) 1.4 % (0.0-2.0); EOSINOPHILS % (AUTO) 2.4 % (1.0-6.0); HEMATOCRIT 29.4 % (36-46); HEMOGLOBIN 10.5 g/dL (12.0-16.0); LYMPHOCYTES # (AUTO) 2.4 K/uL (1.0-4.8); LYMPHOCYTES % (AUTO) 33.9 % (22.0-44.0); MEAN CORPUSCULAR HEMOGLOBIN 30.5 pg (26.0-34.0); MEAN CORPUSCULAR HGB CONC 35.6 G/dL (31.0-37.0); MEAN CORPUSCULAR VOLUME 86 fL (80-100); MONOCYTES # (AUTO) 0.6 K/uL (0.1-1.0); MONOCYTES % (AUTO) 8.6 % (2.0-9.0); NEUTROPHILS # (AUTO) 3.8 K/uL (1.8-7.7); NEUTROPHILS % (AUTO) 53.7 % (40.0-70.0); PLATELET COUNT (AUTO) 424 K/uL (150-450); RED BLOOD CELL COUNT(AUTO) 3.43 MIL/uL (4.00-5.20); RED CELL DISTRIBUTION WIDTH 13.4 % (11.5-14.5)
[2018-12-31 06:19] LABS: GLUCOMETER DEV NAME(LOC) 5N.2; GLUCOSE,POINT OF CARE 241 MG/DL (70-110)
[2018-12-31 07:00] LABS: ALANINE AMINOTRANSFERASE 20 U/L (12-78); ALBUMIN 2.8 g/dL (3.4-5.0); ALKALINE PHOSPHATASE 67 U/L (46-116); ANION GAP 10 mmol/L (8-16); ASPARTATE AMINOTRANSFERASE 20 U/L (15-37); BILIRUBIN,TOTAL 0.3 mg/dL (0.1-1.0); CARBON DIOXIDE 23 mmol/L (22-29); CHLORIDE 101 mmol/L (98-107); CREATININE 0.61 mg/dL (0.60-1.30); GLOMERULAR FILTR. RATE CALC > 60 mL/min (>60); GLUCOSE,RANDOM 238 mg/dL (70-110); POTASSIUM 3.7 mmol/L (3.5-5.1); SODIUM SERUM 134 mmol/L (136-145); TOTAL PROTEIN, SERUM 6.8 g/dL (6.4-8.2); UREA NITROGEN, BLOOD 9 mg/dL (7-18)
[2018-12-31 07:49] VITALS: BP 115/55
[2018-12-31] MEDS: CALCIUM OYSTER SHELL 500 MG TABLET PO SCH (08:40)
[2018-12-31] MEDS: LISINOPRIL 5 MG TABLET PO SCH (08:40)
[2018-12-31] MEDS: ASCORBIC ACID 500 MG TABLET PO SCH (08:40)
[2018-12-31] MEDS: HYDROCODONE/ACETAMINOPHEN 5-325 MG TABLET PO PRN (08:41)
[2018-12-31] MEDS: FAMOTIDINE 10 MG/ML 2 ML VIAL IVP SCH (08:41)
[2018-12-31] MEDS: HEPARIN SODIUM,PORCINE 5,000 UNITS/ML VIAL SQ SCH ×2 (08:41→16:23)
[2018-12-31] MEDS: PRAVASTATIN SODIUM 20 MG TABLET PO SCH (08:41)
[2018-12-31] MEDS: DOCUSATE SODIUM 100 MG CAPSULE PO SCH ×2 (08:45→19:58)
[2018-12-31] MEDS: INSULIN GLARGINE,HUM.REC.ANLOG 100 UNITS/ML SQ SCH (08:45)
[2018-12-31] MEDS ORDERED: SODIUM CHLORIDE 0.9% 500 ML IV ONE (09:06)
[2018-12-31 11:12] VITALS: BP 144/85
[2018-12-31 11:19] LABS: GLUCOMETER DEV NAME(LOC) 5N.2; GLUCOSE,POINT OF CARE 381 MG/DL (70-110)
[2018-12-31 15:29] VITALS: BP 160/98
[2018-12-31] MEDS ORDERED: POTASSIUM CHL 10 MEQ/WATER 50 ML IV PRN (16:15)
[2018-12-31] MEDS ORDERED: POTASSIUM CHLORIDE 10% 40 MEQ/30 ML LIQUID UDCUP PO PRN ×2 (16:15)
[2018-12-31] MEDS ORDERED: POTASSIUM CHLORIDE 20 MEQ ER TABLET PO PRN (16:15)
[2018-12-31 19:12] VITALS: BP 144/86
[2018-12-31 20:23] LABS: GLUCOMETER DEV NAME(LOC) 5S.2; GLUCOSE,POINT OF CARE 282 MG/DL (70-110)
[2018-12-31 21:23] LABS: GLUCOMETER DEV NAME(LOC) 5N.2; GLUCOSE,POINT OF CARE 198 MG/DL (70-110)
[2018-12-31] MEDS: ZOLPIDEM TARTRATE 5 MG TABLET PO PRN (22:20)
[2019-01-01] MEDS: PIPERACILLIN/TAZO 3.375 GM/D5W 50 ML IV SCH ×4 (04:13→21:54)
[2019-01-01 04:50] VITALS: BP 113/68
[2019-01-01 05:59] LABS: GLUCOMETER DEV NAME(LOC) 5N.2; GLUCOSE,POINT OF CARE 184 MG/DL (70-110)
[2019-01-01 06:27] LABS: EOSINOPHILS % (AUTO) 2.1 % (1.0-6.0); HEMATOCRIT 30.8 % (36-46); HEMOGLOBIN 10.5 g/dL (12.0-16.0); LYMPHOCYTES # (AUTO) 2.1 K/uL (1.0-4.8); LYMPHOCYTES % (AUTO) 32.6 % (22.0-44.0); MEAN CORPUSCULAR HEMOGLOBIN 29.5 pg (26.0-34.0); MEAN CORPUSCULAR HGB CONC 34.2 G/dL (31.0-37.0); MEAN CORPUSCULAR VOLUME 86 fL (80-100); MONOCYTES # (AUTO) 0.5 K/uL (0.1-1.0); NEUTROPHILS # (AUTO) 3.8 K/uL (1.8-7.7); NEUTROPHILS % (AUTO) 57.3 % (40.0-70.0); PLATELET COUNT (AUTO) 422 K/uL (150-450); RED BLOOD CELL COUNT(AUTO) 3.56 MIL/uL (4.00-5.20); RED CELL DISTRIBUTION WIDTH 13.5 % (11.5-14.5)
[2019-01-01 07:13] LABS: ALANINE AMINOTRANSFERASE 18 U/L (12-78); ALBUMIN 2.9 g/dL (3.4-5.0); ALKALINE PHOSPHATASE 59 U/L (46-116); ANION GAP 12 mmol/L (8-16); ASPARTATE AMINOTRANSFERASE 15 U/L (15-37); BILIRUBIN,TOTAL 0.3 mg/dL (0.1-1.0); CALCIUM, TOTAL 9.2 mg/dL (8.8-10.5); CARBON DIOXIDE 23 mmol/L (22-29); CHLORIDE 104 mmol/L (98-107); CREATININE 0.65 mg/dL (0.60-1.30); GLOMERULAR FILTR. RATE CALC > 60 mL/min (>60); GLUCOSE,RANDOM 171 mg/dL (70-110); POTASSIUM 3.6 mmol/L (3.5-5.1); SODIUM SERUM 139 mmol/L (136-145); TOTAL PROTEIN, SERUM 6.9 g/dL (6.4-8.2); UREA NITROGEN, BLOOD 8 mg/dL (7-18)
[2019-01-01 07:50] VITALS: BP 119/60
[2019-01-01] MEDS: HEPARIN SODIUM,PORCINE 5,000 UNITS/ML VIAL SQ SCH ×3 (08:00→15:32)
[2019-01-01] MEDS: INSULIN GLARGINE,HUM.REC.ANLOG 100 UNITS/ML SQ SCH (08:57)
[2019-01-01] MEDS: DOCUSATE SODIUM 100 MG CAPSULE PO SCH ×2 (08:57→21:00)
[2019-01-01] MEDS: LISINOPRIL 5 MG TABLET PO SCH (08:58)
[2019-01-01] MEDS: PRAVASTATIN SODIUM 20 MG TABLET PO SCH (08:58)
[2019-01-01] MEDS: ASCORBIC ACID 500 MG TABLET PO SCH (08:58)
[2019-01-01] MEDS: CALCIUM OYSTER SHELL 500 MG TABLET PO SCH (08:58)
[2019-01-01] MEDS: FAMOTIDINE 10 MG/ML 2 ML VIAL IVP SCH (08:59)
[2019-01-01 11:39] LABS: GLUCOMETER DEV NAME(LOC) 5N.2; GLUCOSE,POINT OF CARE 225 MG/DL (70-110)
[2019-01-01 11:55] VITALS: BP 153/92
[2019-01-01] MEDS ORDERED: FentaNYL CITRATE-PF 100 MCG/2 ML VIAL ONE (12:15)
[2019-01-01] MEDS ORDERED: MIDAZOLAM HCL 2 MG/2 ML VIAL ONE (12:15)
[2019-01-01] MEDS ORDERED: GELATIN SPONGE,ABSORBABLE 12-7 MM TP ONE (12:16)
[2019-01-01] MEDS ORDERED: LIDOCAINE/PF 1% 30 ML VIAL ONE (12:16)
[2019-01-01] MEDS ORDERED: FLUMAZENIL 0.1 MG/ML 5 ML VIAL IVP ONE (12:40)
[2019-01-01] MEDS ORDERED: NALOXONE HCL 0.4 MG/ML VIAL ONE (12:40)
[2019-01-01] MEDS ORDERED: MIDAZOLAM HCL 2 MG/2 ML VIAL IVP ONE (13:01)
[2019-01-01] MEDS ORDERED: FentaNYL CITRATE-PF 100 MCG/2 ML VIAL IVP ONE (13:01)
[2019-01-01] MEDS: MORPHINE SULFATE 2 MG/ML SYRINGE IVP PRN ×2 (15:24→22:45)
[2019-01-01 15:26] VITALS: BP 112/67
[2019-01-01] MEDS: INSULIN LISPRO 100 UNITS/ML SQ PRN ×2 (17:38→22:32)
[2019-01-01] MEDS: HYDROCODONE/ACETAMINOPHEN 5-325 MG TABLET PO PRN (17:38)
[2019-01-01 18:05] LABS: GLUCOMETER DEV NAME(LOC) 5N.2; GLUCOSE,POINT OF CARE 329 MG/DL (70-110)
[2019-01-01 20:08] VITALS: BP 113/74
[2019-01-01] MEDS: ZOLPIDEM TARTRATE 5 MG TABLET PO PRN (22:37)
[2019-01-01 23:24] LABS: GLUCOMETER DEV NAME(LOC) 5N.2; GLUCOSE,POINT OF CARE 339 MG/DL (70-110)
[2019-01-02 00:05] VITALS: BP 138/90
[2019-01-02] MEDS: HEPARIN SODIUM,PORCINE 5,000 UNITS/ML VIAL SQ SCH ×2 (00:36→08:00)
[2019-01-02 04:31] VITALS: BP 127/90
[2019-01-02] MEDS: PIPERACILLIN/TAZO 3.375 GM/D5W 50 ML IV SCH ×2 (04:47→10:54)
[2019-01-02] MEDS: MORPHINE SULFATE 2 MG/ML SYRINGE IVP PRN ×2 (05:41→11:11)
[2019-01-02 05:53] LABS: EOSINOPHILS % (AUTO) 1.6 % (1.0-6.0); HEMATOCRIT 29.5 % (36-46); HEMOGLOBIN 10.1 g/dL (12.0-16.0); LYMPHOCYTES % (AUTO) 25.2 % (22.0-44.0); MEAN CORPUSCULAR HGB CONC 34.4 G/dL (31.0-37.0); MEAN CORPUSCULAR VOLUME 87 fL (80-100); MONOCYTES # (AUTO) 0.6 K/uL (0.1-1.0); MONOCYTES % (AUTO) 7.5 % (2.0-9.0); NEUTROPHILS # (AUTO) 5.1 K/uL (1.8-7.7); NEUTROPHILS % (AUTO) 64.7 % (40.0-70.0); PLATELET COUNT (AUTO) 344 K/uL (150-450); RED BLOOD CELL COUNT(AUTO) 3.38 MIL/uL (4.00-5.20); RED CELL DISTRIBUTION WIDTH 13.9 % (11.5-14.5)
[2019-01-02] MEDS: INSULIN LISPRO 100 UNITS/ML SQ PRN ×2 (06:18→12:12)
[2019-01-02 06:27] LABS: ALANINE AMINOTRANSFERASE 17 U/L (12-78); ALBUMIN 2.9 g/dL (3.4-5.0); ALKALINE PHOSPHATASE 64 U/L (46-116); ANION GAP 13 mmol/L (8-16); ASPARTATE AMINOTRANSFERASE 11 U/L (15-37); BILIRUBIN,TOTAL 0.4 mg/dL (0.1-1.0); CARBON DIOXIDE 23 mmol/L (22-29); CHLORIDE 104 mmol/L (98-107); CREATININE 0.84 mg/dL (0.60-1.30); GLOMERULAR FILTR. RATE CALC > 60 mL/min (>60); GLUCOSE,RANDOM 309 mg/dL (70-110); SODIUM SERUM 140 mmol/L (136-145); TOTAL PROTEIN, SERUM 6.8 g/dL (6.4-8.2); UREA NITROGEN, BLOOD 13 mg/dL (7-18)
[2019-01-02 07:36] VITALS: BP 120/56
[2019-01-02 08:14] LABS: GLUCOMETER DEV NAME(LOC) 5S.2; GLUCOSE,POINT OF CARE 306 MG/DL (70-110)
[2019-01-02] MEDS: ASCORBIC ACID 500 MG TABLET PO SCH (08:41)
[2019-01-02] MEDS: CALCIUM OYSTER SHELL 500 MG TABLET PO SCH (08:41)
[2019-01-02] MEDS: PRAVASTATIN SODIUM 20 MG TABLET PO SCH (08:41)
[2019-01-02] MEDS: LISINOPRIL 5 MG TABLET PO SCH (08:41)
[2019-01-02] MEDS: FAMOTIDINE 10 MG/ML 2 ML VIAL IVP SCH (08:42)
[2019-01-02] MEDS: DOCUSATE SODIUM 100 MG CAPSULE PO SCH (09:00)
[2019-01-02] MEDS: INSULIN GLARGINE,HUM.REC.ANLOG 100 UNITS/ML SQ SCH (09:01)
[2019-01-02 11:03] VITALS: BP 145/79
[2019-01-02 12:29] LABS: GLUCOMETER DEV NAME(LOC) 5N.2; GLUCOSE,POINT OF CARE 281 MG/DL (70-110)
[2019-01-02] MEDS ORDERED: LEVO500 PO (15:53)
[2019-01-02] MEDS ORDERED: LISI-661 PO (15:53)
[2019-01-02 16:16] VITALS: BP 128/83
== END 2019-01-02 15:05 | disposition home or self-care (01) | DRG 463 ==
LOC: EMS 10:22 → 5N 16:45
PROVIDERS: ADMIT Hospitalist; ATTEND Hospitalist
PROC: 0T903ZX Drainage of Right Kidney, Percutaneous Approach, Diagnostic (ICD-10-PCS; principal; 2018-12-29)
PROC: 0TB03ZX Excision of Right Kidney, Percutaneous Approach, Diagnostic (ICD-10-PCS; 2019-01-01)
DX: N15.1 Renal and perinephric abscess (principal); E44.0 Moderate protein-calorie malnutrition; E10.65 Type 1 diabetes mellitus with hyperglycemia; N12 Tubulo-interstitial nephritis, not specified as acute or chronic; E78.5 Hyperlipidemia, unspecified; D64.9 Anemia, unspecified; B96.1 Klebsiella pneumoniae [K. pneumoniae] as the cause of diseases classified elsewhere; Z87.440 Personal history of urinary (tract) infections; E78.00 Pure hypercholesterolemia, unspecified; I10 Essential (primary) hypertension; Z90.49 Acquired absence of other specified parts of digestive tract; Z83.3 Family history of diabetes mellitus; Z79.4 Long term (current) use of insulin; K21.9 Gastro-esophageal reflux disease without esophagitis; Z68.27 Body mass index [BMI] 27.0-27.9, adult; Z28.21 Immunization not carried out because of patient refusal
CPT/HCPCS: 50200; 74177; 75989; 83605; 84132; 87040; 87070; 87081; 87205; 88108; 88305; 96365; 96375; 96376; G0378; J0696; J1170; J1644; J1815; J1885; J2250; J2270; J2310; J2405; J2543; J3010; J3490; J7030; J7040; J7050

== ENCOUNTER 2021-06-04 00:03 | Inpatient (IN) | payer OTHER ==
[~2021-06-04] VITALS: Ht 154.9 cm; Wt 80.6 kg
[~2021-06-04 00:03] MED LIST changes: +ACET-784 PO; +ASCO500 PO; -ASCO500T24 PO; -CALC-719 PO; +FERR-89 PO; +LEVO-72 PO; -LISI-660 PO; +MULT-1239 PO; -PRAV20TA4 PO
[2021-06-04 00:39] LABS: GLUCOMETER DEV NAME(LOC) ERT.5; GLUCOSE,POINT OF CARE 175 MG/DL (70-110)
[2021-06-04 01:54] LABS: BASOPHILS % (AUTO) 0.4 % (0.0-2.0); EOSINOPHILS % (AUTO) 1.2 % (1.0-6.0); HEMATOCRIT 30.2 % (36-46); HEMOGLOBIN 10.4 g/dL (12.0-16.0); LYMPHOCYTES # (AUTO) 1.4 K/uL (1.0-4.8); LYMPHOCYTES % (AUTO) 10.5 % (22.0-44.0); MEAN CORPUSCULAR HEMOGLOBIN 32.7 pg (26.0-34.0); MEAN CORPUSCULAR HGB CONC 34.5 G/dL (31.0-37.0); MEAN CORPUSCULAR VOLUME 95 fL (80-100); NEUTROPHILS # (AUTO) 10.4 K/uL (1.8-7.7); NEUTROPHILS % (AUTO) 79.9 % (40.0-70.0); PLATELET COUNT (AUTO) 513 K/uL (150-450); RED CELL DISTRIBUTION WIDTH 11.7 % (11.5-14.5)
[2021-06-04 02:13] LABS: ALANINE AMINOTRANSFERASE 36 U/L (12-78); ALBUMIN 2.9 g/dL (3.4-5.0); ALKALINE PHOSPHATASE 102 U/L (46-116); ANION GAP 18 mmol/L (8-16); ASPARTATE AMINOTRANSFERASE 31 U/L (15-37); BILIRUBIN,TOTAL 0.2 mg/dL (0.1-1.0); CALCIUM, TOTAL 8.6 mg/dL (8.8-10.5); CARBON DIOXIDE 13 mmol/L (22-29); CHLORIDE 89 mmol/L (98-107); CREATININE 1.13 mg/dL (0.60-1.30); GLOMERULAR FILTR. RATE CALC 53 mL/min (>60); GLUCOSE,RANDOM 184 mg/dL (70-110); HCG,QUANTITATIVE < 1 mIU/mL (0-6); LIPASE 261 U/L (73-393); POTASSIUM 3.6 mmol/L (3.5-5.1); TOTAL PROTEIN, SERUM 8.1 g/dL (6.4-8.2); UREA NITROGEN, BLOOD 20 mg/dL (7-18)
[2021-06-04 02:18] LABS: SODIUM SERUM 120 mmol/L (136-145)
[2021-06-04] MEDS ORDERED: SODIUM CHLORIDE 0.9% 1,000 ML IV ONE (02:30)
[2021-06-04] MEDS ORDERED: ONDANSETRON HCL 4 MG/2 ML VIAL IVP ONE (02:30)
[2021-06-04 02:39] LABS: APPEARANCE,URINE CLEAR (CLEAR); BILIRUBIN,URINE NEGATIVE (NEGATIVE); GLUCOSE, URINE (UA) NEGATIVE (NEGATIVE); KETONES,URINE TRACE mg/dL (NEGATIVE); LEUKOCYTE ESTERASE ,URINE NEGATIVE (NEGATIVE); NITRATE,URINE NEGATIVE (NEGATIVE); OCCULT BLOOD,URINE MODERATE (NEGATIVE); PH,URINE 5.5 (5.0-8.0); PROTEIN,URINE SEE CONFIRM (NEGATIVE); UROBILINOGEN,URINE 0.2 mg/dL (<=1.0)
[2021-06-04 02:49] LABS: GLUCOSE,POINT OF CARE 204 MG/DL (70-110)
[2021-06-04 02:55] LABS: ABG CARBOXYHEMOGLOBIN 0.3 % (0.0-1.5); ABG METHEMOGLOBIN 0.1 % (0.0-1.5); SOURCE, BLOOD GAS ARTERIAL; TEMPERATURE, FAHRENHEIT, BG 98.6 FAHREN (96.0-98.6)
[2021-06-04 03:20] LABS: ABG BASE EXCESS -15.4 mmol/L (-2.0-3.0); ABG HCO3 13.5 mmol/L (22.0-26.0); ABG OXYGEN CONTENT 13.9 mL/dL (15.0-23.0); ABG OXYGEN SATURATION 96.4 % (95.0-98.0); ABG PCO2 28 mmHg (35-45); ABG PH 7.249 (7.35-7.450); ABG TOTAL HEMOGLOBIN 10.2 G/dL (12.0-18.0); PO2, ARTERIAL BG 94.4 mmHg (88.0-96.0); SITE, BLOOD GAS LFT RADIAL
[2021-06-04 03:21] LABS: O2 DEVICE,BLOOD GAS ROOM AIR (ROOM AIR)
[2021-06-04] MEDS ORDERED: MORPHINE SULFATE 2 MG/ML SYRINGE IVP ONE (03:30)
[2021-06-04 03:34] LABS: BACTERIA,URINE Few /HPF (None Seen); HYALINE CASTS, URINE 0-2 /LPF (None Seen); RBC,URINE 0-2 /HPF (0-2); SQUAMOUS EPITHELIAL CELL,UR Few /LPF (None Seen); SULFOSALICYLIC ACID,URINE 3+ (Negative); WBC,URINE 0-2 /HPF (0-5)
[2021-06-04] MEDS ORDERED: ACETAMINOPHEN 325 MG TABLET PO PRN (03:45)
[2021-06-04] MEDS ORDERED: INSULIN REGULAR, HUMAN 100 UNITS/ML IVP PRN (03:45)
[2021-06-04] MEDS ORDERED: INSULIN REGULAR, HUMAN 100 UNITS in SODIUM CHLORIDE 0.9% 99 ML IV PRN ×2 (03:45)
[2021-06-04] MEDS ORDERED: INSULIN REGULAR, HUMAN 100 UNITS/ML IVP ONE (03:45)
[2021-06-04] MEDS ORDERED: DEXTROSE 5%-0.45% SODIUM CHL 1,000 ML IV PRN (03:45)
[2021-06-04] MEDS ORDERED: SODIUM CHLORIDE 0.9% 1,000 ML IV SCH (03:45)
[2021-06-04] MEDS ORDERED: SODIUM CHLORIDE 0.45% 1,000 ML IV PRN (03:45)
[2021-06-04] MEDS ORDERED: DEXTROSE 50%-WATER 25 GM/50 ML SYRINGE IVP PRN ×2 (03:45→15:15)
[2021-06-04] MEDS ORDERED: POTASSIUM CHL 20 MEQ/0.45% NS 1,000 ML IV PRN (03:45)
[2021-06-04] MEDS ORDERED: SODIUM CHLORIDE 0.9% 100 ML ONE (04:32)
[2021-06-04] MEDS ORDERED: IOHEXOL 350 MG/ML 100 ML VIAL ONE (04:33)
[2021-06-04 05:29] LABS: CALCIUM, TOTAL 8.8 mg/dL (8.8-10.5); CREATININE 1.13 mg/dL (0.60-1.30); POTASSIUM 3.6 mmol/L (3.5-5.1)
[2021-06-04] MEDS ORDERED: SODIUM CHLORIDE 0.45% 1,000 ML IV ONE (05:45)
[2021-06-04 06:21] LABS: ANION GAP 16 mmol/L (8-16); CALCIUM, TOTAL 8.1 mg/dL (8.8-10.5); CARBON DIOXIDE 13 mmol/L (22-29); CHLORIDE 96 mmol/L (98-107); CREATININE 0.79 mg/dL (0.60-1.30); GLOMERULAR FILTR. RATE CALC > 60 mL/min (>60); GLUCOSE,RANDOM 177 mg/dL (70-110); POTASSIUM 3.3 mmol/L (3.5-5.1); SODIUM SERUM 125 mmol/L (136-145); UREA NITROGEN, BLOOD 18 mg/dL (7-18)
[2021-06-04 06:21] LABS: GLUCOSE,POINT OF CARE 168 MG/DL (70-110)
[2021-06-04 06:27] LABS: ALANINE AMINOTRANSFERASE 32 U/L (12-78); ALBUMIN 2.3 g/dL (3.4-5.0); ALKALINE PHOSPHATASE 82 U/L (46-116); ASPARTATE AMINOTRANSFERASE 28 U/L (15-37); BILIRUBIN,TOTAL 0.2 mg/dL (0.1-1.0); TOTAL PROTEIN, SERUM 6.7 g/dL (6.4-8.2)
[2021-06-04 07:26] LABS: GLUCOSE,POINT OF CARE 150 MG/DL (70-110)
[2021-06-04] MEDS: HEPARIN SODIUM,PORCINE 5,000 UNITS/ML VIAL SQ SCH ×3 (07:36→23:48)
[2021-06-04] MEDS: MORPHINE SULFATE 2 MG/ML SYRINGE IVP PRN ×3 (07:37→17:45)
[2021-06-04 08:02] LABS: COVID AG,FIA SOURCE NASOPHARYNGEAL
[2021-06-04 08:21] LABS: PHOSPHORUS 3.2 mg/dL (2.5-4.9)
[2021-06-04] MEDS: ONDANSETRON HCL 4 MG/2 ML VIAL IVP PRN (08:27)
[2021-06-04 08:43] LABS: GLUCOSE,POINT OF CARE 149 MG/DL (70-110)
[2021-06-04] MEDS: POTASSIUM CHLORIDE 40 MEQ in SODIUM CHLORIDE 0.45% 1,000 ML IV PRN ×2 (09:31→12:32)
[2021-06-04] MEDS ORDERED: CefTRIAXone 1 GM/DEXTROSE 50 ML IV ONE (09:45)
[2021-06-04 10:52] LABS: ANION GAP 16 mmol/L (8-16); CALCIUM, TOTAL 8.3 mg/dL (8.8-10.5); CARBON DIOXIDE 14 mmol/L (22-29); CHLORIDE 97 mmol/L (98-107); CREATININE 0.82 mg/dL (0.60-1.30); GLOMERULAR FILTR. RATE CALC > 60 mL/min (>60); GLUCOSE,RANDOM 136 mg/dL (70-110); POTASSIUM 3.9 mmol/L (3.5-5.1); SODIUM SERUM 127 mmol/L (136-145); UREA NITROGEN, BLOOD 16 mg/dL (7-18)
[2021-06-04 10:58] LABS: GLUCOSE,POINT OF CARE 151 MG/DL (70-110)
[2021-06-04] MEDS ORDERED: MAGNESIUM SULFATE 2 GM/WATER 50 ML IV PRN (12:30)
[2021-06-04] MEDS ORDERED: MAGNESIUM OXIDE 400 MG TABLET PO PRN (12:30)
[2021-06-04] MEDS ORDERED: MAGNESIUM SULFATE 4 GM/WATER 100 ML IV PRN (12:30)
[2021-06-04] MEDS: PANTOPRAZOLE SODIUM 40 MG/VIAL IVP SCH (12:32)
[2021-06-04] MEDS ORDERED: PIPERACILLIN/TAZO 3.375 GM/D5W 50 ML IV ONE (12:45)
[2021-06-04 13:04] LABS: GLUCOSE,POINT OF CARE 132 MG/DL (70-110)
[2021-06-04 13:20] LABS: ALBUMIN 2.4 g/dL (3.4-5.0)
[2021-06-04 14:36] LABS: ANION GAP 9 mmol/L (8-16); CALCIUM, TOTAL 7.9 mg/dL (8.8-10.5); CARBON DIOXIDE 15 mmol/L (22-29); CHLORIDE 103 mmol/L (98-107); CREATININE 0.92 mg/dL (0.60-1.30); GLOMERULAR FILTR. RATE CALC > 60 mL/min (>60); GLUCOSE,RANDOM 144 mg/dL (70-110); POTASSIUM 4.2 mmol/L (3.5-5.1); SODIUM SERUM 127 mmol/L (136-145); UREA NITROGEN, BLOOD 14 mg/dL (7-18)
[2021-06-04 15:09] LABS: GLUCOSE,POINT OF CARE 132 MG/DL (70-110)
[2021-06-04] MEDS ORDERED: SODIUM CHLORIDE 0.9% 1,000 ML ONE (15:24)
[2021-06-04] MEDS: SODIUM CHLORIDE 0.9% 1,000 ML IV SCH ×2 (15:33→20:55)
[2021-06-04] MEDS: INSULIN GLARGINE,HUM.REC.ANLOG 100 UNITS/ML SQ SCH ×2 (15:34→20:53)
[2021-06-04 17:54] LABS: GLUCOSE,POINT OF CARE 136 MG/DL (70-110)
[2021-06-04] MEDS: PIPERACILLIN/TAZO 3.375 GM/D5W 50 ML IV SCH (20:50)
[2021-06-04] MEDS: INSULIN LISPRO 100 UNITS/ML SQ PRN (20:54)
[2021-06-04 21:06] LABS: GLUCOSE,POINT OF CARE 192 MG/DL (70-110)
[2021-06-05] MEDS: PIPERACILLIN/TAZO 3.375 GM/D5W 50 ML IV SCH ×4 (02:02→20:14)
[2021-06-05] MEDS: SODIUM CHLORIDE 0.9% 1,000 ML IV SCH ×3 (03:44→21:32)
[2021-06-05 05:22] LABS: BASOPHILS % (AUTO) 0.4 % (0.0-2.0); EOSINOPHILS % (AUTO) 1.9 % (1.0-6.0); HEMATOCRIT 27.1 % (36-46); HEMOGLOBIN 9.4 g/dL (12.0-16.0); LYMPHOCYTES # (AUTO) 1.2 K/uL (1.0-4.8); LYMPHOCYTES % (AUTO) 13.3 % (22.0-44.0); MEAN CORPUSCULAR HEMOGLOBIN 33.3 pg (26.0-34.0); MEAN CORPUSCULAR HGB CONC 34.7 G/dL (31.0-37.0); MEAN CORPUSCULAR VOLUME 96 fL (80-100); MONOCYTES # (AUTO) 1.1 K/uL (0.1-1.0); MONOCYTES % (AUTO) 11.6 % (2.0-9.0); NEUTROPHILS # (AUTO) 6.6 K/uL (1.8-7.7); NEUTROPHILS % (AUTO) 72.8 % (40.0-70.0); PLATELET COUNT (AUTO) 492 K/uL (150-450); RED BLOOD CELL COUNT(AUTO) 2.83 MIL/uL (4.00-5.20); RED CELL DISTRIBUTION WIDTH 11.7 % (11.5-14.5)
[2021-06-05 05:54] LABS: ALANINE AMINOTRANSFERASE 30 U/L (12-78); ALBUMIN 2.2 g/dL (3.4-5.0); ALKALINE PHOSPHATASE 79 U/L (46-116); ANION GAP 16 mmol/L (8-16); ASPARTATE AMINOTRANSFERASE 19 U/L (15-37); BILIRUBIN,TOTAL 0.1 mg/dL (0.1-1.0); CALCIUM, TOTAL 8.3 mg/dL (8.8-10.5); CARBON DIOXIDE 14 mmol/L (22-29); CHLORIDE 106 mmol/L (98-107); CHOL/HDL RATIO 3.5 (3.9-5.7); CHOLESTEROL 99 mg/dL (131-200); CREATININE 0.94 mg/dL (0.60-1.30); GLOMERULAR FILTR. RATE CALC > 60 mL/min (>60); GLUCOSE,RANDOM 157 mg/dL (70-110); HDL CHOLESTEROL 28 mg/dL (40-60); LDL CHOL (CALC.) 39 mg/dL (0-130); POTASSIUM 4.1 mmol/L (3.5-5.1); SODIUM SERUM 136 mmol/L (136-145); THYROID STIMULATING HORMONE 0.49 uIU/mL (0.36-3.74); TOTAL PROTEIN, SERUM 6.7 g/dL (6.4-8.2); TRIGLYCERIDES 161 mg/dL (15-150); UREA NITROGEN, BLOOD 9 mg/dL (7-18)
[2021-06-05] MEDS: INSULIN LISPRO 100 UNITS/ML SQ PRN ×4 (06:09→20:13)
[2021-06-05] MEDS: MORPHINE SULFATE 2 MG/ML SYRINGE IVP PRN ×3 (06:23→20:19)
[2021-06-05] MEDS: ONDANSETRON HCL 4 MG/2 ML VIAL IVP PRN ×2 (06:23→20:32)
[2021-06-05] MEDS: HEPARIN SODIUM,PORCINE 5,000 UNITS/ML VIAL SQ SCH ×3 (07:14→23:13)
[2021-06-05 08:00] LABS: GLUCOSE,POINT OF CARE 159 MG/DL (70-110)
[2021-06-05 08:53] VITALS: BP 158/93
[2021-06-05] MEDS: INSULIN GLARGINE,HUM.REC.ANLOG 100 UNITS/ML SQ SCH ×2 (08:54→20:11)
[2021-06-05] MEDS: PANTOPRAZOLE SODIUM 40 MG/VIAL IVP SCH (08:54)
[2021-06-05 11:25] VITALS: BP 137/84
[2021-06-05] MEDS: DOCUSATE SODIUM 100 MG CAPSULE PO SCH ×2 (11:41→20:14)
[2021-06-05 12:12] LABS: GLUCOMETER DEV NAME(LOC) 5N.3; GLUCOSE,POINT OF CARE 151 MG/DL (70-110)
[2021-06-05 16:02] VITALS: BP 146/83
[2021-06-05 17:18] LABS: GLUCOMETER DEV NAME(LOC) 5S.1; GLUCOSE,POINT OF CARE 185 MG/DL (70-110)
[2021-06-05] MEDS: FERROUS SULFATE 325 MG EC TABLET PO SCH (18:51)
[2021-06-05 19:19] VITALS: BP 153/94
[2021-06-05 23:44] VITALS: BP 157/95
[2021-06-06] MEDS: MORPHINE SULFATE 2 MG/ML SYRINGE IVP PRN (01:13)
[2021-06-06 01:17] LABS: GLUCOMETER DEV NAME(LOC) 5S.2B; GLUCOSE,POINT OF CARE 193 MG/DL (70-110)
[2021-06-06] MEDS: PIPERACILLIN/TAZO 3.375 GM/D5W 50 ML IV SCH ×2 (02:57→09:03)
[2021-06-06 04:01] VITALS: BP 154/94
[2021-06-06] MEDS: SODIUM CHLORIDE 0.9% 1,000 ML IV SCH ×2 (05:11→07:15)
[2021-06-06] MEDS: INSULIN LISPRO 100 UNITS/ML SQ PRN ×2 (06:02→12:13)
[2021-06-06 06:29] LABS: BASOPHILS % (AUTO) 0.5 % (0.0-2.0); EOSINOPHILS % (AUTO) 1.8 % (1.0-6.0); HEMATOCRIT 27.6 % (36-46); HEMOGLOBIN 9.5 g/dL (12.0-16.0); LYMPHOCYTES # (AUTO) 1.3 K/uL (1.0-4.8); LYMPHOCYTES % (AUTO) 12.1 % (22.0-44.0); MEAN CORPUSCULAR HEMOGLOBIN 33.3 pg (26.0-34.0); MEAN CORPUSCULAR HGB CONC 34.4 G/dL (31.0-37.0); MEAN CORPUSCULAR VOLUME 97 fL (80-100); MONOCYTES % (AUTO) 8.9 % (2.0-9.0); NEUTROPHILS # (AUTO) 8.3 K/uL (1.8-7.7); NEUTROPHILS % (AUTO) 76.7 % (40.0-70.0); PLATELET COUNT (AUTO) 539 K/uL (150-450); RED BLOOD CELL COUNT(AUTO) 2.85 MIL/uL (4.00-5.20); RED CELL DISTRIBUTION WIDTH 12.1 % (11.5-14.5)
[2021-06-06 07:08] LABS: GLUCOMETER DEV NAME(LOC) 5S.1; GLUCOSE,POINT OF CARE 183 MG/DL (70-110)
[2021-06-06 08:00] VITALS: BP 142/80
[2021-06-06 08:24] LABS: ALANINE AMINOTRANSFERASE 28 U/L (12-78); ALBUMIN 2.1 g/dL (3.4-5.0); ALKALINE PHOSPHATASE 74 U/L (46-116); ANION GAP 15 mmol/L (8-16); ASPARTATE AMINOTRANSFERASE 28 U/L (15-37); BILIRUBIN,TOTAL 0.2 mg/dL (0.1-1.0); CALCIUM, TOTAL 8.1 mg/dL (8.8-10.5); CARBON DIOXIDE 17 mmol/L (22-29); CHLORIDE 105 mmol/L (98-107); CREATININE 0.79 mg/dL (0.60-1.30); GLOMERULAR FILTR. RATE CALC > 60 mL/min (>60); GLUCOSE,RANDOM 156 mg/dL (70-110); POTASSIUM 4.1 mmol/L (3.5-5.1); SODIUM SERUM 137 mmol/L (136-145); TOTAL PROTEIN, SERUM 6.6 g/dL (6.4-8.2); UREA NITROGEN, BLOOD 6 mg/dL (7-18)
[2021-06-06] MEDS ORDERED: ASCORBIC ACID 500 MG TABLET PO SCH (09:00)
[2021-06-06] MEDS ORDERED: MULTIVITAMINS WITH MINERALS, THERAPEUTIC TABLET PO SCH (09:00)
[2021-06-06] MEDS: DOCUSATE SODIUM 100 MG CAPSULE PO SCH (09:04)
[2021-06-06] MEDS: PANTOPRAZOLE SODIUM 40 MG/VIAL IVP SCH (09:04)
[2021-06-06] MEDS: FERROUS SULFATE 325 MG EC TABLET PO SCH (09:04)
[2021-06-06] MEDS: HEPARIN SODIUM,PORCINE 5,000 UNITS/ML VIAL SQ SCH (09:05)
[2021-06-06] MEDS: INSULIN GLARGINE,HUM.REC.ANLOG 100 UNITS/ML SQ SCH (09:08)
[2021-06-06 12:03] VITALS: BP 148/91
[2021-06-06 23:16] LABS: GLUCOMETER DEV NAME(LOC) 5S.1; GLUCOSE,POINT OF CARE 228 MG/DL (70-110)
== END 2021-06-06 14:55 | disposition home or self-care (01) | DRG 420 ==
LOC: EMS 00:12 → 5S 06-05 05:21
PROVIDERS: ADMIT Internal Medicine; ATTEND Internal Medicine
DX: E10.10 Type 1 diabetes mellitus with ketoacidosis without coma (principal); N15.1 Renal and perinephric abscess; E10.40 Type 1 diabetes mellitus with diabetic neuropathy, unspecified; R65.10 Systemic inflammatory response syndrome (SIRS) of non-infectious origin without acute organ dysfunction; E87.1 Hypo-osmolality and hyponatremia; Z20.822 Contact with and (suspected) exposure to COVID-19; E66.9 Obesity, unspecified; E78.5 Hyperlipidemia, unspecified; I10 Essential (primary) hypertension; Z79.4 Long term (current) use of insulin; Z91.19 Patient's noncompliance with other medical treatment and regimen; K21.9 Gastro-esophageal reflux disease without esophagitis; E86.0 Dehydration; Z68.33 Body mass index [BMI] 33.0-33.9, adult
CPT/HCPCS: 36600; 74177; 80048; 80053; 80061; 81001; 81002; 82009; 82040; 82805; 82962; 83036; 83605; 83690; 83735; 83930; 83935; 84100; 84145; 84300; 84439; 84443; 84702; 85025; 87040; 99291; C9113; G0378; J0696; J1644; J1815; J2270; J2405; J2543; J3475; J3480; J7030; J7050; Q9967